=== PATIENT | female | born 1975 | race Caucasian/White ===

== ENCOUNTER 2019-05-07 21:08 | Emergency (ER) | payer SELFPAY ==
[2019-05-07] MEDS ORDERED: KETOROLAC TROMETHAMINE 60 MG/2 ML VIAL IM ONE (21:27)
[2019-05-07] MEDS ORDERED: AMOXICILLIN 500 MG CAPSULE PO ONE (21:27)
--- NOTE | 2019-05-07 21:34 | ED Physician Documentation ---
Sore Throat/Dental Pain - HISTORIAN Historian: patient - HPI Chief Complaint: Dental Pain Additional Information: 44 year old female presents with right lower jaw pain that has been ongoing for 2 months. She has appointment in May with PCP and dentist. Onset: other Context: Fractured Tooth, Possible Infection Associated Symptoms: denies: fever, chills, sore throat Worsened By: heat, cold - ROS CONST: no problems CVS/RESP: none GI/: denies: nausea, vomiting NEURO/PSYCH: none - PAST HX Past History: gum disease Other History: none Immunizations: UTD Allergies/Adverse Reactions: Allergies Allergy/AdvReac Type Severity Reaction Status Date / Time No Known Drug Allergies Allergy Verified 05/07/19 21:53 Home Medications: Ambulatory Orders Medication Instructions Recorded Naproxen Sodium 220 mg PO PRN 05/07/19 Amoxicillin [Trimox] 500 mg PO TID #21 capsule 05/08/19 Ketorolac Tromethamine [Toradol] 10 mg PO Q6H #12 tablet 05/08/19 - SOCIAL HX Smoking History: less than 1 pack/day Alcohol Use: none Drug Use: none - FAMILY HX Family History: No - VITAL SIGNS Vital Signs: Vital Signs Temp Pulse Resp BP Pulse Ox 126/84 03/26/16 18:45 - REVIEWED ASSESSMENTS Nursing Assessment Reviewed: Yes Vitals Reviewed: Yes ED Results Lab/Radiology - Orders Orders: ED Orders Category Date Time Status Amoxicillin [Amoxil] Med 05/07/19 21:27 Once 1,000 mg PO NOW ONE Ketorolac Tromethamine [Toradol] Med 05/07/19 21:27 Once 60 mg IM NOW ONE Dental Pain Physical Exam - EXAM General Appearance: alert, mild distress Head/Neck: head nml inspection, trachea midline Eyes: eyes nml inspection, PERRL Mouth/Throat: lips nml, gums nml, pharynx nml, voice nml, no drooling, membranes nml, dental tenderness Ear/Nose: nml inspection Respiratory: breath sounds nml CVS: heart sounds nml Extremities: nml ROM Skin: warm/dry, normal color Neuro/Psych: none Discharge Clincal Impression: Dental caries Referrals: Padma Simmons MD [Primary Care Provider] - 2 Days Additional Instructions: Toradol 10 mg by mouth every 8 hours as needed for pain Take Amoxil 500mg by mouth 3 times a day for 10 days Continue to alternate Tylenol and Naproxen Warm salt water gargles Keep appointment with PCP and dentist Condition: Good Decision to Admit: NO Decision Time: 22:00
[2019-05-07 21:53] VITALS: BP 141/87
== END 2019-05-07 21:45 ==
LOC: ED 21:08
DX: K02.9 Dental caries, unspecified (principal); S02.5XXA Fracture of tooth (traumatic), initial encounter for closed fracture; X58.XXXA Exposure to other specified factors, initial encounter
CPT/HCPCS: 96372; 99282; 99284; J1885